=== PATIENT | male | born 1945 | race Caucasian/White ===

== ENCOUNTER 2018-06-25 06:57 | Emergency (ER) | payer MEDICAID, OTHER ==
[~2018-06-25] VITALS: Wt 100.0 kg
[2018-06-25 07:00] VITALS: Wt 100.0 kg
[2018-06-25] MEDS ORDERED: AMLO-147 PO (08:19)
[2018-06-25] MEDS ORDERED: CALC1TAB32 PO (08:19)
[2018-06-25] MEDS ORDERED: LOSA100T15 PO (08:19)
[2018-06-25] MEDS ORDERED: METO-319 PO (08:19)
[2018-06-25] MEDS ORDERED: PIOG30TA12 PO (08:19)
[2018-06-25] MEDS ORDERED: FURO20TA3 PO ×2 (08:19→10:49)
[2018-06-25] MEDS ORDERED: GABA300C16 PO ×2 (08:19→11:12)
[2018-06-25] MEDS ORDERED: SITA1TAB5 PO (08:19)
[2018-06-25] MEDS ORDERED: POTA8TAB2 PO (08:19)
[2018-06-25] MEDS ORDERED: ALLO300T2 PO (08:19)
[2018-06-25] MEDS ORDERED: ASPI81TA50 ORAL (08:19)
[2018-06-25] MEDS ORDERED: HYDR25TA6 PO (08:19)
--- NOTE | 2018-06-25 08:35 | ERD ---
ER Documentation Chief Complaint Chief Complaint SOB WORSEN LAST NIGHT HPI 72-year-old male presents to the emergency department complaining of shortness of breath. Patient was in his usual state of health until the last few weeks at which time he has developed increasing dyspnea on exertion. This then got worse over the last 24 hours. He reports no fevers, cough, sputum production, hemoptysis. He reports no chest pain. He reports that he is having increasing swelling of his lower extremities. He reports that even slight exertion at this time now causes him to be short of breath. ROS All systems reviewed and are negative except as per history of present illness. Medications Home Meds Reported Medications Sitagliptin Phos/Metformin HCl (Janumet 50-1,000 mg Tablet) 1 Each Tablet, 1 TAB PO DAILY, TAB 06/25/18 Losartan Potassium* (Losartan Potassium*) 100 Mg Tablet, 100 MG PO DAILY, TAB 06/25/18 Pioglitazone Hcl* (Actos*) 30 Mg Tablet, 30 MG PO DAILY, #30 TAB 06/25/18 Metoprolol Succinate* (Toprol XL*) 50 Mg Tab.er.24h, 50 MG PO DAILY, #30 TAB 06/25/18 Amlodipine Besylate* (Amlodipine Besylate*) 10 Mg Tablet, 10 MG PO DAILY, #30 TAB 06/25/18 Potassium Chloride* (Klor-Con*) 8 Meq Tablet.sa, 8 MEQ PO DAILY, TAB 06/25/18 Hydrochlorothiazide* (Hydrochlorothiazide*) 25 Mg Tab, 25 MG PO DAILY, #30 TAB 06/25/18 Allopurinol* (Allopurinol*) 300 Mg Tablet, 300 MG PO DAILY, TAB 06/25/18 Gabapentin* (Gabapentin*) 300 Mg Capsule, 300 MG PO BID, #60 CAP 06/25/18 Furosemide* (Furosemide*) 20 Mg Tablet, 20 MG PO DAILY, #60 TAB 06/25/18 Calcium Carbonate/Vitamin D3 (Os-Darnell 500-Vit D3 200 Caplet) 1 Each Tablet, 1 TAB PO BID, TAB 06/25/18 Aspirin (Aspir-Low) 81 Mg Tablet.dr, 1 TAB ORAL DAILY 06/25/18 Allergies Allergies: Coded Allergies: No Known Allergy (Unverified , 06/25/18) PMhx/Soc History of Surgery: No Anesthesia Reaction: No Hx Neurological Disorder: No Hx Respiratory Disorders: No Hx Cardiac Disorders: No (CHF, HTN) Hx Psychiatric Problems: No Hx Miscellaneous Medical Probl: Yes (DM) Hx Alcohol Use: Yes Hx Substance Use: No Hx Tobacco Use: No Smoking Status: Never smoker FmHx Supportive family at bedside Physical Exam Vitals Vital Signs Date Temp Pulse Resp B/P (MAP) Pulse Ox O2 O2 Flow FiO2 Time Delivery Rate 06/25/18 Nasal 2.0 07:10 Cannula 06/25/18 Nasal 2 07:10 Cannula 06/25/18 97.2 72 18 162/67 95 07:00 (98) Physical Exam GENERAL: Plethoric male. Mild to moderate respiratory distress HEENT: Pupils equal, round, and reactive to light. EOMI. There is no scleral icterus. NECK: C-spine is soft and supple, there is no meningismus. There is no cervical lymphadenopathy. LUNGS: Crackles bilaterally with no tachypnea or retractions HEART: Slow regular rhythm with no murmurs ABDOMEN: Soft, non-tender, non-distended. There are bowel sounds in all four quadrants. No rebound or guarding. EXTREMITIES: 2+ edema bilaterally with no cyanosis or clubbing NEURO: The patient moves all four extremities with 5/5 strength. Cranial nerves II - XII are intact. Normal gait. Alert and oriented SKIN: There is no apparent rash or petechiae. HEME/LYMPHATIC: There is no evidence of excessive bruising or lymphedema. PSYCHIATRIC: The patient does not appear anxious or depressed. Result Diagram: 06/25/1823 06/25/1823 Results 24 hrs Laboratory Tests Test 06/25/18 07:23 White Blood Count 9.5 10^3/ul Red Blood Count 3.97 10^6/ul Hemoglobin 11.6 g/dl Hematocrit 35.7 % Mean Corpuscular Volume 89.9 fl Mean Corpuscular Hemoglobin 29.2 pg Mean Corpuscular Hemoglobin Concent 32.5 g/dl Red Cell Distribution Width 14.7 % Platelet Count 206 10^3/UL Mean Platelet Volume 10.7 fl Immature Granulocytes % 0.700 % Neutrophils % 73.3 % Lymphocytes % 12.6 % Monocytes % 13.0 % Eosinophils % 0.2 % Basophils % 0.2 % Nucleated Red Blood Cells % 0.0 /100WBC Immature Granulocytes # 0.070 10^3/ul Neutrophils # 7.0 10^3/ul Lymphocytes # 1.2 10^3/ul Monocytes # 1.2 10^3/ul Eosinophils # 0.0 10^3/ul Basophils # 0.0 10^3/ul Nucleated Red Blood Cells # 0.0 10^3/ul Sodium Level 140 mmol/L Potassium Level 4.6 mmol/L Chloride Level 105 mmol/L Carbon Dioxide Level 18 mmol/L Anion Gap 17 Blood Urea Nitrogen 45 mg/dl Creatinine 1.57 mg/dl Est Glomerular Filtrat Rate mL/min mL/min Glucose Level 186 mg/dl Calcium Level 9.2 mg/dl Total Bilirubin 0.6 mg/dl Direct Bilirubin 0.00 mg/dl Indirect Bilirubin 0.6 mg/dl Aspartate Amino Transf (AST/SGOT) 22 IU/L Alanine Aminotransferase (ALT/SGPT) < 6 IU/L Alkaline Phosphatase 56 IU/L Troponin I 0.055 ng/ml B-Type Natriuretic Peptide 5920 PG/ML Total Protein 7.7 g/dl Albumin 3.7 g/dl Globulin 4.00 g/dl Albumin/Globulin Ratio 0.92 Procedures/MDM Patient was taken to a room, seen and evaluated. Comfort measures were initiated. Diagnostic tests were ordered and reviewed. 3 LEAD RHYTHM STRIP: Slow sinus rhythm with what appears to be a demand pacemaker EK lead EKG reviewed by myself: Slow sinus rhythm with what appears to be a demand pacemaker Pacemaker morphology No ST elevation, depression, or T wave inversion, nonspecific ST and T wave changes Impression: Abnormal EKG RADIOLOGY: Reviewed with the radiologist CONSULTATION: Dr. Rivas was notified for admission @ 0835 REEVALUATION: 0830: Diagnostic tests were appreciated. Patient remained comfortable without evidence of significant respiratory distress. Arrangements were made for admission to the hospital MEDICAL DECISION MAKING: Patient presents for shortness of breath. Differential diagnosis entertained included asthma, pneumonia, other cardiac and pulmonary concerns. After reviewing the patient's diagnostic tests and clinical presentation, patient appears to have a decompensated congestive heart failure complicated by renal insufficiency and what appears to be a cardiomyopathy based on EKG. Patient will require admission to the hospital for diuresis and further cardiac evaluation. Departure Diagnosis: Primary Impression: Congestive heart failure Additional Impression: Renal insufficiency Condition: Stable AMANDAVIVIANA PLASCENCIA Jun 25, 2018 08:35
--- NOTE | 2018-06-25 10:50 | PDOCDIS ---
Discharge Instructions CONDITION [id number] Patient Condition: [id number] Good HOME CARE INSTRUCTIONS: [id number] Diet Instructions: [id number] Activity Restrictions: [id number] Rest between Activity FOLLOW UP/APPOINTMENTS Follow-up Plan pcp [address] Ramirez 1 week ARSLAN ECHEVERRIA MD Jun 25, 2018 10:50
[2018-06-25] MEDS ORDERED: FUROSEMIDE 40 MG INJ IV ONE (11:00)
[2018-06-25 12:16] VITALS: BP 148/56; PULSE 50; RESP 20
--- NOTE | 2018-06-25 14:35 | CONS ---
DATE OF ADMISSION: 06/25/2018 DATE OF CONSULTATION: CHIEF COMPLAINT: Dyspnea on exertion. 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 The patient denies any chest pain. No cough. No fevers or chills. The patient had been on Lasix 20 mg daily. He has been seei sharyn Ferris as outpatient. Initial evaluation revealed a BNP of 5920. The room air saturation at the time of my visit was 100%. The serum creatinine was 1.57. Chest x-ray was unremarkable. PAST MEDICAL HISTORY: 1. Hypertension. 2. Chronic CHF. 3. Type 2 diabetes mellitus. 4. Stage III chronic kidney disease. MEDICATIONS PRIOR TO ADMISSION: 1. Amlodipine 10 mg daily. 2. Losartan 100 mg daily. 3. Metoprolol 50 mg daily. 4. Aspirin 81 mg daily. 5. Gabapentin 300 mg b.i.d. 6. Lasix 20 mg daily. 7. Potassium chloride 8 mEq daily. 8. Actos 30 mg daily. 9. Janumet (metformin) 1 tablet daily. 10. Allopurinol 300 mg daily. SOCIAL HISTORY: The patient lives at home. He denies tobacco or alcohol use. PHYSICAL EXAMINATION: GENERAL: Well-developed, well-nourished male who is in no apparent distress. VITAL SIGNS: Stable. LUNGS: Clear to auscultation bilaterally. CARDIAC: Regular rate and rhythm. No murmurs, rubs or gallops. ABDOMEN: Soft, nontender, nondistended, normoactive bowel sounds. EXTREMITIES: Mild edema. No clubbing or cyanosis. NEUROLOGICAL: Nonfocal. LABORATORY DATA: Hemoglobin is 11.6, white blood cell count 9.5, platelet count is 206,000. Sodium 140, potassium 4.6, chloride 105, bicarbonate 18, BUN 45, creatinine 1.57. ASSESSMENT: 1. A 72-year-old male with [id number] congestive heart failure exacerbation. 2. Hypertension, well controlled. 3. Type 2 diabetes mellitus. 4. Stage III chronic kidney disease. 5. Recent history of left ventricular thrombus. PLAN: 1. Lasix 40 mg IV push x1. 2. Discharged home with home health nurse. 3. Increase Lasix to 40 mg daily. 4. Decrease gabapentin to 300 mg daily. 5. Discontinue metformin. 6. Case was discussed with Dr. Ferris. He will see the patient as outpatient in the morning. 7. Follow up with PCP and Dr. Ferris. Dictated By: ARSLAN GHOSH/NTS Conf#: [id number] DID#: [id number] CC: VIVIANA PATEL;*End*
== END 2018-06-25 12:20 | disposition home or self-care (01) ==
LOC: E/R 06:57 → CANBEDREQ 11:26 → E/R 12:20
DX: I11.0 Hypertensive heart disease with heart failure (principal); I50.9 Heart failure, unspecified; N28.9 Disorder of kidney and ureter, unspecified; E11.9 Type 2 diabetes mellitus without complications; Z79.82 Long term (current) use of aspirin; Z79.84 Long term (current) use of oral hypoglycemic drugs
CPT/HCPCS: 36415; 71045; 80053; 83880; 84484; 85025; 93005; 96374; 99285; J1940